=== PATIENT | male | born 1935 | race Caucasian/White ===

== ENCOUNTER 2016-06-20 17:58 | Inpatient (IN) | payer OTHER ==
--- NOTE | ~2016-06-20 | CT4 ---
[facility] A Service of [facility] RADIOLOGY TEXT RESULTS PATIENT: ANA BANKS LOCATION: [facility] : 37 UNIT #: [id number] AGE: [address]: Iván Hill MD SEX: M ORDER DR: [id number] [facility]. [place], [place] [address] [id number] MR#: [id number] Acc #: [id number] NAME: ANA BANKS : 1935 SEX: M STUDY DATE/TIME: 06/20/2016 18:37 UNIT: CEDOF ROOM: 75243 STUDY DESCRIPTION: CT Abd and Pelv Wo Cont Attending Physician: Iván Hill M.D. Ordering Physician: Johana Alcantar M.D. Primary Care Physician: Hilda Limon M.D. MEDICAL IMAGING REPORT This report is preliminary unless electronic signature is present EXAM CT abdomen and pelvis without contrast DATE OF STUDY 06/20/[address] abdomen and pelvis without oral or IV contrast with multiplanar reformats. This CT exam was performed with one or more of the following radiation dose reduction techniques: automatic exposure control, adjustment of mA and/or kV according to patient size, and iterative reconstruction. COMPARISON None. CLINICAL HISTORY Abdominal pain for 2 days. FINDINGS The lung bases are unremarkable. ABDOMEN: Unenhanced images of the liver, gallbladder, spleen, and pancreas and kidneys and adrenal glands are unremarkable. The aorta is normal in caliber. There is colonic diverticulosis and in the left lower quadrant, there is a section of inflammatory change surrounding the sigmoid colon. There is no abscess or bowel obstruction. Findings are most consistent with diverticulitis. PELVIS: Again, there are changes in the sigmoid of diverticulitis without STS. [facility] A Service [facility] RADIOLOGY TEXT RESULTS PATIENT: ANA BANKS LOCATION: [facility] [address] : 37 UNIT #: [id number] AGE: [address]: Iván Hill MD SEX: M ORDER DR: abscess or free air obstruction. There is no hernia or other acute abnormality. IMPRESSION Moderately extensive colonic diverticulitis with a segment of inflammatory change in the sigmoid in the left lower quadrant near the left colonic sigmoid junction most consistent with diverticulitis but without evidence of abscess, free air, or bowel obstruction. Dictated by... Eliu Costello M.D. THIS IS AN ELECTRONICALLY VERIFIED REPORT Eliu Costello M.D. at 06/23/2016 4:32 PM TEV/sosa TD: 06/21/2016 13:04 JOB #: [id number] MEDICAL IMAGING REPORT COPY
--- NOTE | ~2016-06-20 | CO ---
Unit #: [id number] #: [id number] Patient: ANA BANKS [id number] [facility]. [place], [place] [address] [id number] MR#: [id number] NAME: ANA BANKS ROOM: 570 Age: 80 Sex: M Admission Date: 06/20/2016 : 1935 Attending Physician: Iván Hill M.D. Primary Care Physician: Hilda Limon M.D. Consultation Date: 06/21/2016 CONSULTATION REPORT PRIMARY CARE PHYSICIAN Hilda Limon M.D. REASON FOR CONSULTATION Sigmoid diverticulitis. HISTORY OF PRESENT ILLNESS Mr. Banks is a very pleasant 80-year-old white gentleman. The patient lives at home with his . He was fine until about 3 days ago, when he started experiencing pain in the lower abdomen. It was felt both in the left and right lower quadrant of the abdomen. It progressively got worse and was continuous and relentless with pain on minimal movement along with intense pain that brought him to the emergency room. In addition, he has been constipated for the past 3 days. There is no history of fever, chills, or rigors. No history of weight loss. The patient denies any history of preceding change in bowel movements. No history of overt GI bleed in the form of hematemesis, melena, or hematochezia. Upon admission, he had a CAT scan that shows presence of thickening of the sigmoid colon consistent with sigmoid diverticulitis. The patient has been started on IV Flagyl and Levaquin by Dr. Willis. He mentions an episode of diverticulitis many years ago. PAST MEDICAL HISTORY Significant for history of hypertension, hyperlipidemia, type 2 diabetes, an episode of diverticulitis in the remote past, history of moderate mitral regurgitation. PAST SURGICAL HISTORY Included appendectomy; a heart catheterization, that shows minimal coronary artery disease; and right upper lobectomy for benign mass. MEDICATIONS At home included Eliquis, Lasix, pravastatin, lisinopril, Amaryl, diltiazem, Centrum Silver, and stool softener. ALLERGIES He has no known drug allergies. SOCIAL HISTORY The patient does not smoke or drink alcohol. He is retired and lives at home with his . REVIEW OF SYSTEMS Detailed review of organ system does not reveal any recent weight loss. Unit #: [id number] #: [id number] Patient: ANA BANKS No history of fever, chills, or rigors. No history of headache, seizures, chest pain, or syncope. No history of cough, expectoration, or hemoptysis. No history of dysuria, hematuria, or pyuria. No history of focal seizures or extremity weakness. Rest of the review of organ systems is unremarkable. PHYSICAL EXAMINATION GENERAL: He is alert and oriented, and comfortable. VITAL SIGNS: Stable with a temperature of 97.9, pulse 88 per minute and regular, respiratory rate is 18, blood pressure 122/70. He appears well nourished and has some centripetal obesity. HEENT: He has no pallor, icterus, lymphadenopathy, or peripheral edema. CARDIOVASCULAR: Normal heart sounds. No murmurs on auscultation. LUNGS: Reveals normal breath sounds. Good air entry. ABDOMEN: Somewhat firm, but exquisitely tender in the left lower quadrant. No area of rigidity, rebound, or guarding is felt. Liver and spleen are not palpable. Bowel sounds normal. Hernia sites were also normal. DIAGNOSTIC STUDIES LABORATORY RESULTS: Shows a white count of 14,000, platelet count of 82,000, and mild indirect hyperbilirubinemia suggestive of underlying Gilbert syndrome. In addition, the patient has microscopic hematuria on urinalysis. IMAGING STUDIES: CAT scan suggests descending colon sigmoid diverticulitis as evidenced by segmental thickening of the colon in this area, and presence of diffuse diverticulosis. CLINICAL IMPRESSION 1. The patient does indeed have sigmoid diverticulitis. He is on appropriate antibiotic coverage. We will continue these and monitor the patient in the next 24 to 48 hours. 2. Underlying thrombocytopenia. 3. Microscopic hematuria. 4. 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 The patient also has constipation and is being started on MiraLAX and Senokot. We will repeat the CBC and CMP in the morning and review the patient thereafter. Thank you for asking me to see this pleasant gentleman. I appreciate the consult. Dictated by... Ean Daniel/jesse TD: 06/22/2016 15:50 JOB #: [id number] CC: Enrique Willis M.D. Unit #: [id number] #: [id number] Patient: ANA BANKS CONSULTATION REPORT X Kevin Waddell MD CONSULTATION REPORT
--- NOTE | ~2016-06-20 | DS ---
Unit #: [id number] #: [id number] Patient: ANA BANKS [id number] [address] [id number] I MR#: [id number] NAME: ANA BANKS. ROOM: 570 Age: 80 Sex: M Admission Date: 06/20/2016 : 1935 Discharge Date: 06/22/2016 Attending Physician: Iván Hill M.D. Primary Care Physician: Hilda Limon M.D. DISCHARGE SUMMARY PRIMARY DIAGNOSIS Acute sigmoid diverticulitis. SECONDARY DIAGNOSES 1. Constipation. 2. Microscopic hematuria. 3. Thrombocytopenia, stable, present on admission. 4. Hypertension. 5. Atrial fibrillation. 6. Diabetes mellitus type 2. HOSPITAL COURSE The patient was admitted to the hospital. He received IV fluids and pain control as well as laxative, stool softener, and suppositories for symptomatic treatment in addition to Flagyl and Levaquin for definitive treatment. The patient clinically improved quite rapidly and it is felt to be stable for discharge today, 06/22/2016. He is instructed to return to the emergency room if his symptoms worsened and he is very eager to leave the hospital today and to sleep in his own bed. The patient reports he feels much better, nearly 100%. DISCHARGE DISPOSITION To home. DISCHARGE STATUS Stable. FOLLOWUP Follow up is with his primary care physician in 1 to 2 weeks. DISCHARGE ACTIVITY Ad sandra. DISCHARGE DIET Unrestricted as tolerated. SPECIAL FOLLOWUP NOTES The patient does need repeat urinalysis with his PCP to follow up on some microscopic hematuria. DISCHARGE MEDICATIONS Eliquis 5 mg p.o. b.i.d., diltiazem ER 240 mg p.o. daily, bisacodyl suppository 10 mg per rectum q.12 hours p.r.n. constipation, Unit #: [id number] #: [id number] Patient: ANA BANKS sennosides/docusate 2 tablets p.o. b.i.d., Lasix 40 mg p.o. b.i.d., pravastatin 40 mg p.o. daily, lisinopril 10 mg p.o. daily, Centrum Silver multivitamin 1 tablet p.o. daily, glimepiride 4 mg p.o. daily, Flagyl 500 mg p.o. t.i.d. for 9 additional days, and Levaquin 500 mg p.o. daily for 9 additional days. Dictated by... Ean Murrieta/jesse TD: 06/25/2016 16:39 JOB #: [id number] DISCHARGE SUMMARY X Iván Hill MD X DISCHARGE SUMMARY
--- NOTE | ~2016-06-20 | HP ---
Unit #: [id number] #: [id number] Patient: ANA BANKS [id number] [place], [place] [address] [id number] I MR#: [id number] NAME: ANA BANKS. ROOM: 05738 Age: 80 Sex: M Admission Date: 06/20/2016 : 1935 Attending Physician: Iván Hill M.D. Primary Care Physician: Hilda Limon M.D. HISTORY AND PHYSICAL CHIEF COMPLAINT Abdominal pain. DISCUSSION This is a 80-year-old gentleman with a past medical history of hypertension, AFib, diabetes, diverticulosis, and dyslipidemia. He presented to the emergency room with chief complaining of having lower abdominal pain since Thursday. He said initially he had diarrhea, but, since Thursday, he has no further diarrhea, but diffuse abdomen pain, lower abdomen pain and pain is sharp and constant. No blood in the stool. No nausea. No vomiting. No fever. No chills. No cough. No chest pain. PAST MEDICAL HISTORY 1. History of hypertension. 2. Dyslipidemia. 3. History of moderate mitral regurgitation. 4. History of AFib. 5. Diabetes. 6. History of diverticulosis. PAST SURGICAL HISTORY 1. 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 2. History of cardiac cath in August 2014 shows 40% stenosis of circumflex. 3. History of bronchoscopy in the past. 4. History of appendectomy. SOCIAL HISTORY She denies smoking. Denies alcohol. Denies illicit drug use. ALLERGIES No known drug allergies. MEDICATIONS From home are followin. Eliquis 5 mg twice a day. 2. Lasix 40 mg twice daily. 3. Pravastatin 40 mg daily. 4. Lisinopril 10 mg daily. 5. Amaryl 4 mg daily. 6. Diltiazem ER 250 mg p.o. daily. 7. Centrum Silver 1 tablet daily. 8. Stool softener 1 tablet twice a day. FAMILY HISTORY Unit #: [id number] #: [id number] Patient: ANA BANKS Patient has a brother who at age 50 with a PR. Both parents negative for coronary artery disease. No history of colon cancer in the family. TWELVE REVIEW OF SYSTEMS CONSTITUTIONAL: No fever. No chills. CARDIOVASCULAR: No chest pain. No diaphoresis. No palpitations. PULMONARY: No cough. No wheezing. GI: Diffuse lower abdominal pain and diarrhea since Thursday, but no further diarrhea, no constipation, and no blood in the stool. NEURO: No headache. No dizziness. No loss of consciousness. ENDOCRINE: No polyuria. No polydipsia. PHYSICAL EXAMINATION GENERAL APPEARANCE: Middle-aged man lying in the bed comfortably not in any distress. He is alert, awake, and oriented x3. VITAL SIGNS: Current vitals are following: Temperature 98, heart rate 92, respiratory rate 16, blood pressure 124/48, and oxygen 97% on room air. HEENT: Pupils equal and reactive to light and accommodation. Head normocephalic and atraumatic. NECK: Supple. No JVD. HEART: S1 and S2. Regular rate and rhythm. ABDOMEN: Soft, nontender, and nondistended. Bowel sounds positive. EXTREMITIES: Inspection normal. No cyanosis, no clubbing, and no edema. NEUROLOGICAL: No focal neurologic deficit. ABDOMEN: Soft with diffuse lower abdominal tenderness positive. No guarding. No rigidity. DIAGNOSTIC STUDIES LABORATORY: Workup is following. UA is unremarkable. Sodium is 133, potassium 3.8, chloride 100, glucose 111, BUN 16, creatinine 1.1. LFTs within normal limits. CBC: White count 14, hemoglobin 13, hematocrit 38, and platelets 98. IMAGING: CT scan shows diverticulitis (1) colon. ASSESSMENT AND PLAN 1. Diverticulitis. Keep the patient on full liquid diet. Start on IV antibiotics, Levaquin and Flagyl. 2. Leukocytosis. 3. History of hypertension. 4. Dyslipidemia. 5. Moderate mitral regurgitation. 6. History of AFib. 7. Diabetes. 8. History of diverticulosis. 9. DVT prophylaxis. Patient is on Eliquis. Dictated by Ean Covarrubias/consuelo TD: 06/21/2016 07:14 JOB #: [id number] Unit #: [id number] #: [id number] Patient: ANA BANKS HISTORY AND PHYSICAL X X HISTORY AND PHYSICAL
[2016-06-20 15:32] LABS: BASOPHIL# 0.1 X10e3 (0-0.3); BASOPHIL% 0.4 % (0-2.5); EOSINOPHIL% 6.8 % (0.0-7.0); HEMATOCRIT 38.1 % (38.0-50.0); HEMOGLOBIN 13.3 gm/dL (13.0-16.0); LYMPHOCYTE# 1.9 X10e3 (1.0-3.5); LYMPHOCYTE% 13.3 % (17.0-45.0); MEAN CELL VOLUME 85.6 FL (83-96); MEAN CORPUSCULAR HEMOGLOBIN 29.9 PG (28-34); MEAN PLATELET VOLUME 9.4 FL (6.5-11.5); MONOCYTE# 1.2 X10e3 (0-1.0); MONOCYTE% 8.7 % (3.0-12.0); NEUTROPHIL% 70.8 % (40-75); RED BLOOD COUNT 4.45 X10e (3.90-5.60); RED CELL DISTRIBUTION WIDTH 13.9 % (11.0-15.5); WHITE BLOOD COUNT 14.1 X10e3 (4.0-10.5)
[2016-06-20 15:45] LABS: PLATELET COUNT 98 X10e3 (140-420)
[2016-06-20 15:46] LABS: DIFF IND NO
[2016-06-20 15:58] LABS: ALBUMIN SERUM 4.1 g/dL (3.5-5.0); ALKALINE PHOSPHATASE 55 U/L (32-92); ALT (SGPT) 13 U/L (10-40); AST (SGOT) 16 U/L (10-42); BLOOD UREA NITROGEN 16 mg/dL (9-23); BUN/CREATININE RATIO 14.54; CALCIUM SERUM 8.5 mg/dL (8.4-10.2); CARBON DIOXIDE 28 mmol/L (22-31); CHLORIDE 100 mmol/L (100-111); CREATININE SERUM 1.1 mg/dL (0.6-1.4); GLOM FILT RATE Estimated ABOVE60 mL/min (>60); GLUCOSE FASTING 111 mg/dL (70-110); LIPASE 10 U/L (22-51); POTASSIUM 3.8 mmol/L (3.5-5.1); SODIUM 133 mmol/L (135-145)
[~2016-06-20 17:58] MED LIST: AMARYL PO; AMLODIPINE BESYL5 MG PO; ASPIRIN PO; ASPIRIN81 M2 PO; CENTRUM PO; CENTRUM SILVER1 EAC2 PO; CIPRO PO; COLACE PO; COUMADIN PO; ELIQUIS2.5 MG PO; FLAGYL PO; HYDROCODON-ACE1 EAC7 PO; KCL PO; KLONOPIN PO; LASIX PO; LISINOPRIL PO; LOPRESSOR PO; METOPROLOL SUCC50 MG PO; PACERONE PO; PERCOCET5/325 PO; PHENERGAN PO; PRAVACHOL PO; PRAVASTATIN SOD40 MG PO; PRINIVIL20 M1 PO; STOOL SOFTENER100 M1 PO; TUSSIONEX PENN473 ML; TUSSIONEX PENN473 ML PO; WARFARIN SODIUM2 M1 PO; ZITHROMAX1 G/PKT PO
[2016-06-20 18:41] LABS: URINE SOURCE CLEAN CATCH
[2016-06-20 18:46] LABS: URINE APPEARANCE CLEAR; URINE BILIRUBIN NEG (NEG); URINE BLOOD 1+ (NEG); URINE COLOR YELLOW; URINE GLUCOSE NEG (NEG); URINE KETONE NEG (NEG); URINE LEUKOCYTE ESTERASE NEG (NEG); URINE NITRATE NEG (NEG); URINE PH 7.5 (5-8); URINE PROTEIN TRACE (NEG); URINE SPECIFIC GRAVITY 1.018 (1.003-1.035)
[2016-06-20 18:49] LABS: URBCS1 AUWI 25-50 /[HPF] (0-2); URINE BACTERIA AUWI NEG (NEGATIVE); URINE SQUAMOUS EPITHELIAL CELL NONE SEEN /[HPF]; UWBCS1 AUWI 0-2 (0-5)
[2016-06-20 18:50] LABS: CULTURE INDICATED? NO
[2016-06-20] MEDS ORDERED: ELIQUIS5 MG PO (19:46)
[2016-06-20] MEDS ORDERED: LASIX20 MG PO (19:47)
[2016-06-20] MEDS ORDERED: PRAVASTATIN SOD40 MG PO (19:47)
[2016-06-20] MEDS ORDERED: LISINOPRIL10 MG PO (19:48)
[2016-06-20] MEDS ORDERED: DILTIAZEM 24HR240 M1 PO (19:49)
[2016-06-20] MEDS ORDERED: AMARYL PO (19:49)
[2016-06-20] MEDS ORDERED: CENTRUM SILVER1 EAC2 PO (19:49)
[2016-06-20] MEDS ORDERED: STOOL SOFTENER1 EAC1 PO (19:50)
[2016-06-21 06:51] LABS: BASOPHIL% 0.4 % (0-2.5); EOSINOPHIL# 1.3 X10e3 (0-0.7); EOSINOPHIL% 17.1 % (0.0-7.0); HEMOGLOBIN 13.1 gm/dL (13.0-16.0); LYMPHOCYTE# 1.4 X10e3 (1.0-3.5); LYMPHOCYTE% 18.9 % (17.0-45.0); MEAN CELL VOLUME 86.2 FL (83-96); MEAN CORPUSCULAR HEMOGLOBIN 30.5 PG (28-34); MEAN CORPUSCULAR HGB CONC 35.3 g/dL (30-36); MEAN PLATELET VOLUME 9.4 FL (6.5-11.5); MONOCYTE# 0.6 X10e3 (0-1.0); MONOCYTE% 8.2 % (3.0-12.0); NEUTROPHIL# 4.1 X10e3 (1.5-7.1); NEUTROPHIL% 55.4 % (40-75); PLATELET COUNT 82 X10e3 (140-420); RED CELL DISTRIBUTION WIDTH 13.9 % (11.0-15.5); WHITE BLOOD COUNT 7.5 X10e3 (4.0-10.5)
[2016-06-21 06:52] LABS: DIFF IND NO
[2016-06-21 07:48] LABS: BLOOD UREA NITROGEN 15 mg/dL (9-23); BUN/CREATININE RATIO 18.75; CALCIUM SERUM 8.5 mg/dL (8.4-10.2); CARBON DIOXIDE 28 mmol/L (22-31); CHLORIDE 103 mmol/L (100-111); CREATININE SERUM 0.8 mg/dL (0.6-1.4); GLOM FILT RATE Estimated ABOVE60 mL/min (>60); GLUCOSE FASTING 110 mg/dL (70-110); POTASSIUM 4.2 mmol/L (3.5-5.1); SODIUM 139 mmol/L (135-145)
[2016-06-22 07:02] LABS: HEMATOCRIT 38.2 % (38.0-50.0); HEMOGLOBIN 13.3 gm/dL (13.0-16.0); MEAN CELL VOLUME 85.5 FL (83-96); MEAN CORPUSCULAR HEMOGLOBIN 29.8 PG (28-34); MEAN CORPUSCULAR HGB CONC 34.8 g/dL (30-36); MEAN PLATELET VOLUME 9.5 FL (6.5-11.5); RED BLOOD COUNT 4.47 X10e (3.90-5.60); RED CELL DISTRIBUTION WIDTH 13.9 % (11.0-15.5); WHITE BLOOD COUNT 7.1 X10e3 (4.0-10.5)
[2016-06-22 07:48] LABS: ALBUMIN SERUM 3.5 g/dL (3.5-5.0); ALKALINE PHOSPHATASE 49 U/L (32-92); ALT (SGPT) 11 U/L (10-40); AST (SGOT) 15 U/L (10-42); BILIRUBIN,TOTAL 0.9 mg/dL (0.2-2.0); BLOOD UREA NITROGEN 16 mg/dL (9-23); BUN/CREATININE RATIO 17.77; CALCIUM SERUM 8.8 mg/dL (8.4-10.2); CARBON DIOXIDE 27 mmol/L (22-31); CHLORIDE 104 mmol/L (100-111); CREATININE SERUM 0.9 mg/dL (0.6-1.4); GLOM FILT RATE Estimated ABOVE60 mL/min (>60); GLUCOSE FASTING 152 mg/dL (70-110); POTASSIUM 4.1 mmol/L (3.5-5.1); PROTEIN TOTAL SERUM 5.9 g/dL (6.0-8.3); SODIUM 139 mmol/L (135-145)
[2016-06-22] MEDS ORDERED: FLAGYL PO (16:09)
[2016-06-22] MEDS ORDERED: FAST RELIEF LAX10 MG PR (16:11)
[2016-06-22] MEDS ORDERED: LEVAQUIN PO (16:12)
== END 2016-06-22 18:43 | disposition home or self-care (01) | DRG 392 ==
LOC: CED 17:58 → CEDOF 20:00 → C5C 06-21 23:25
PROVIDERS: Emergency Medicine; Internal Medicine; Internal Medicine Gastroenterology; Student in an Organized Health Care Education/Training Program
DX: K57.32 Diverticulitis of large intestine without perforation or abscess without bleeding (principal); D69.6 Thrombocytopenia, unspecified; I48.91 Unspecified atrial fibrillation; R31.29 Other microscopic hematuria; E80.4 Gilbert syndrome; I10 Essential (primary) hypertension; E78.5 Hyperlipidemia, unspecified; I34.0 Nonrheumatic mitral (valve) insufficiency; E11.9 Type 2 diabetes mellitus without complications; Z79.01 Long term (current) use of anticoagulants; K59.00 Constipation, unspecified
CPT/HCPCS: 36415; 74176; 80048; 80053; 81003; 82947; 83690; 85025; 85027; 96365; 96375; 99285; J1815; J1956; J2270; J2405